=== PATIENT | male | born 1940 ===

== ENCOUNTER 2020-09-02 06:55 | Day surgery (SDC) | payer OTHER ==
[~2020-09-02 06:55] MED LIST: ATACAND16 MG PO; GABAPENTIN400 MG PO; JANUMET 50-1,01 EACH PO; LASIX20 MG PO; LIPITOR20 MG PO; PEPCID40 MG PO; TAMS0.4C PO; TOPROL XL50 M1 PO; XARELTO20 M1 PO; ZYLOPRIM100 M1 PO
[2020-09-02] MEDS ORDERED: NEURONTIN300 MG PO (09:38)
[2020-09-02] MEDS ORDERED: PERCOCET 5-3251 EACH PO (09:38)
[2020-09-02] MEDS ORDERED: DERMOPLAST PAIN78 GM TOP (09:39)
== END 2020-09-02 14:35 | disposition home or self-care (01) ==
LOC: CIR.AMB 06:55
PROVIDERS: ATTEND Surgery
DX: K64.4 Residual hemorrhoidal skin tags (principal); K64.8 Other hemorrhoids; Z20.828 Contact with and (suspected) exposure to other viral communicable diseases